=== PATIENT | male | born 1985 | race Two or more races ===

== ENCOUNTER 2021-07-26 03:18 | Emergency (ER) | payer OTHER ==
[~2021-07-26] VITALS: Ht 167.6 cm; Wt 81.6 kg
[2021-07-26 03:18] VITALS: BP 120/86
== END 2021-07-26 06:47 | disposition left against medical advice (07) ==
LOC: ER 03:18
DX: R51.9 Headache, unspecified (principal); R07.89 Other chest pain; Z53.21 Procedure and treatment not carried out due to patient leaving prior to being seen by health care provider; V43.62XA Car passenger injured in collision with other type car in traffic accident, initial encounter; Y93.89 Activity, other specified; Y92.410 Unspecified street and highway as the place of occurrence of the external cause; Y99.8 Other external cause status
CPT/HCPCS: 70450; 71045; 93005